=== PATIENT | male | born 1990 | race Caucasian/White ===

== ENCOUNTER 2021-06-26 16:49 | Emergency (ER) | payer OTHER ==
[~2021-06-26] VITALS: Ht 185.4 cm; Wt 97.7 kg
[~2021-06-26 16:49] MED LIST: NOCURR; OMEP20TA2 PO
[2021-06-26 17:03] VITALS: BP 138/92
[2021-06-26] MEDS ORDERED: HYDROCODONE/ACETAMINOPHEN 10-325 MG TABLET PO ONE (18:15)
== END 2021-06-26 18:49 | disposition home or self-care (01) ==
LOC: EMS 16:49
DX: S93.601A Unspecified sprain of right foot, initial encounter (principal); F17.210 Nicotine dependence, cigarettes, uncomplicated; W18.39XA Other fall on same level, initial encounter; Y93.89 Activity, other specified; Y92.89 Other specified places as the place of occurrence of the external cause; Y99.8 Other external cause status
CPT/HCPCS: 99283

== ENCOUNTER 2021-08-06 23:01 | Emergency (ER) | payer OTHER ==
[2021-08-07] MEDS ORDERED: MAG30ORA11 PO (15:03)
[2021-08-07] MEDS ORDERED: ACET-66 PO (15:03)
== END 2021-08-07 | disposition left against medical advice (07) ==
LOC: EMS 23:02
DX: Z53.21 Procedure and treatment not carried out due to patient leaving prior to being seen by health care provider (principal)

== ENCOUNTER 2021-08-07 11:55 | Emergency (ER) | payer OTHER ==
[~2021-08-07] VITALS: Ht 182.9 cm; Wt 95.5 kg
[2021-08-07] MEDS ORDERED: FAMOTIDINE 10 MG/ML 2 ML VIAL IVP ONE (12:30)
[2021-08-07] MEDS ORDERED: MAG HYDROX/AL HYDROX/SIMETH 30 ML SUSP UDCUP PO ONE (12:30)
[2021-08-07] MEDS ORDERED: SODIUM CHLORIDE 0.9% 1,000 ML IV ONE (12:30)
[2021-08-07] MEDS ORDERED: ACETAMINOPHEN 500 MG TABLET PO ONE (12:30)
[2021-08-07] MEDS ORDERED: KETOROLAC TROMETHAMINE 30 MG/ML VIAL IVP ONE (12:30)
[2021-08-07 12:46] LABS: BASOPHILS % (AUTO) 0.2 % (0.0-2.0); EOSINOPHILS % (AUTO) 0.1 % (1.0-6.0); HEMATOCRIT 44.4 % (41-53); HEMOGLOBIN 15.4 g/dL (13.5-17.5); LYMPHOCYTES # (AUTO) 0.9 K/uL (1.0-4.8); LYMPHOCYTES % (AUTO) 7.7 % (22.0-44.0); MEAN CORPUSCULAR HEMOGLOBIN 30.5 pg (26.0-34.0); MEAN CORPUSCULAR HGB CONC 34.7 G/dL (31.0-37.0); MEAN CORPUSCULAR VOLUME 88 fL (80-100); MONOCYTES # (AUTO) 0.8 K/uL (0.1-1.0); MONOCYTES % (AUTO) 6.1 % (2.0-9.0); NEUTROPHILS # (AUTO) 10.6 K/uL (1.8-7.7); PLATELET COUNT (AUTO) 201 K/uL (150-450); RED BLOOD CELL COUNT(AUTO) 5.06 MIL/uL (4.50-5.90); RED CELL DISTRIBUTION WIDTH 12.2 % (11.5-14.5)
[2021-08-07 12:50] LABS: ANION GAP 8 mmol/L (8-16); CALCIUM, TOTAL 8.7 mg/dL (8.8-10.5); CARBON DIOXIDE 26 mmol/L (22-29); CHLORIDE 101 mmol/L (98-107); CREATININE 0.92 mg/dL (0.60-1.30); GLOMERULAR FILTR. RATE CALC > 60 mL/min (>60); GLUCOSE,RANDOM 113 mg/dL (70-110); POTASSIUM 3.7 mmol/L (3.5-5.1); SODIUM SERUM 135 mmol/L (136-145); UREA NITROGEN, BLOOD 10 mg/dL (7-18)
[2021-08-07 12:55] LABS: COVID AG,FIA SOURCE NASOPHARYNGEAL
[2021-08-07 12:58] LABS: B-TYPE NATRIURETIC PEPTIDE 5 pg/mL (0-100)
[2021-08-07 13:03] LABS: NEUTROPHILS % (AUTO) 85.9 % (40.0-70.0)
[2021-08-07 13:22] LABS: ALANINE AMINOTRANSFERASE 28 U/L (12-78); ALBUMIN 3.5 g/dL (3.4-5.0); ALKALINE PHOSPHATASE 73 U/L (46-116); ASPARTATE AMINOTRANSFERASE 15 U/L (15-37); BILIRUBIN,TOTAL 0.9 mg/dL (0.1-1.0); CREATINE KINASE, TOTAL ONLY 95 U/L (39-308); TOTAL PROTEIN, SERUM 7.4 g/dL (6.4-8.2)
[2021-08-07] MEDS ORDERED: IOHEXOL 350 MG/ML 150 ML VIAL ONE (13:42)
[2021-08-07] MEDS ORDERED: SODIUM CHLORIDE 0.9% 100 ML ONE (13:42)
[2021-08-07 14:14] VITALS: BP 147/81
[2021-08-07 14:19] LABS: INFLUENZA TYPE A NEGATIVE FOR TYPE A (NEGATIVE); INFLUENZA TYPE B NEGATIVE FOR TYPE B (NEGATIVE)
[2021-08-07 14:48] LABS: PROTHROMBIN TIME 10.6 SEC (9.4-11.6)
[2021-08-07] MEDS ORDERED: ACET-66 PO (15:03)
[2021-08-07] MEDS ORDERED: MAG30ORA11 PO (15:03)
== END 2021-08-07 16:05 | disposition home or self-care (01) ==
LOC: EMS 11:55
DX: R07.9 Chest pain, unspecified (principal); F17.210 Nicotine dependence, cigarettes, uncomplicated; R11.2 Nausea with vomiting, unspecified; R19.7 Diarrhea, unspecified; Z20.822 Contact with and (suspected) exposure to COVID-19
CPT/HCPCS: 36415; 71045; 71275; 80053; 82550; 83880; 84484; 85025; 85379; 85610; 85730; 87426; 87804; 93005; 96361; 96374; 96375; 99285; J1885; J3490; J7050; Q9967

== ENCOUNTER 2021-09-25 20:49 | Inpatient (IN) | payer OTHER ==
[~2021-09-25] VITALS: Ht 185.4 cm; Wt 95.5 kg
[~2021-09-25 20:49] MED LIST changes: +ACET-66 PO; +MAG30ORA11 PO; -NOCURR; -OMEP20TA2 PO
[2021-09-25] MEDS ORDERED: HYDROCODONE/ACETAMINOPHEN 5-325 MG TABLET PO ONE (22:30)
[2021-09-25] MEDS ORDERED: THROMBIN, BOVINE 20000 UNITS/VIAL POWDER TP ONE (22:35)
[2021-09-25] MEDS ORDERED: GELATIN SPONGE,ABSORBABLE 100 MM TP ONE (22:35)
[2021-09-25] MEDS ORDERED: ONDANSETRON HCL 4 MG/2 ML VIAL IVP PRN (23:00)
[2021-09-25] MEDS ORDERED: ACETAMINOPHEN 325 MG TABLET PO PRN (23:00)
[2021-09-25] MEDS ORDERED: MORPHINE SULFATE 2 MG/ML SYRINGE IVP PRN (23:00)
[2021-09-25] MEDS ORDERED: PIPERACILLIN/TAZO 3.375 GM/D5W 50 ML IV ONE (23:00)
[2021-09-25] MEDS ORDERED: RINGERS LACTATED IV ONE (23:00)
[2021-09-25] MEDS ORDERED: VANCOMYCIN 1GM/WATER(PEG/NADA) 200 ML IV ONE (23:00)
[2021-09-25 23:49] LABS: BASOPHILS % (AUTO) 0.3 % (0.0-2.0); EOSINOPHILS % (AUTO) 0.9 % (1.0-6.0); HEMATOCRIT 40.5 % (41-53); HEMOGLOBIN 13.8 g/dL (13.5-17.5); LYMPHOCYTES # (AUTO) 1.6 K/uL (1.0-4.8); LYMPHOCYTES % (AUTO) 17.4 % (22.0-44.0); MEAN CORPUSCULAR HEMOGLOBIN 30.1 pg (26.0-34.0); MEAN CORPUSCULAR HGB CONC 34.1 G/dL (31.0-37.0); MEAN CORPUSCULAR VOLUME 88 fL (80-100); MONOCYTES % (AUTO) 10.4 % (2.0-9.0); NEUTROPHILS # (AUTO) 6.6 K/uL (1.8-7.7); PLATELET COUNT (AUTO) 257 K/uL (150-450); RED BLOOD CELL COUNT(AUTO) 4.59 MIL/uL (4.50-5.90); RED CELL DISTRIBUTION WIDTH 13.1 % (11.5-14.5)
[2021-09-25] MEDS: HEPARIN SODIUM,PORCINE 5,000 UNITS/ML VIAL SQ SCH (23:56)
[2021-09-26 00:01] LABS: ANION GAP 8 mmol/L (8-16); CALCIUM, TOTAL 8.9 mg/dL (8.8-10.5); CARBON DIOXIDE 29 mmol/L (22-29); CHLORIDE 101 mmol/L (98-107); GLUCOSE,RANDOM 96 mg/dL (70-110); POTASSIUM 3.9 mmol/L (3.5-5.1); SODIUM SERUM 138 mmol/L (136-145); UREA NITROGEN, BLOOD 14 mg/dL (7-18)
[2021-09-26 00:05] LABS: ALANINE AMINOTRANSFERASE 28 U/L (12-78); ALBUMIN 3.4 g/dL (3.4-5.0); ALKALINE PHOSPHATASE 72 U/L (46-116); ASPARTATE AMINOTRANSFERASE 10 U/L (15-37); BILIRUBIN,TOTAL 0.4 mg/dL (0.1-1.0); TOTAL PROTEIN, SERUM 7.4 g/dL (6.4-8.2)
[2021-09-26 00:06] LABS: GLOMERULAR FILTR. RATE CALC > 60 mL/min (>60)
[2021-09-26 00:32] LABS: COVID AG,FIA SOURCE NASAL SWAB
[2021-09-26 01:15] VITALS: BP 136/72
[2021-09-26] MEDS ORDERED: SODIUM CHLORIDE 0.9% 250 ML IV ONE (01:27)
[2021-09-26] MEDS: RINGERS SOLUTION,LACTATED 1,000 ML IV SCH ×3 (01:37→18:52)
[2021-09-26 06:00] VITALS: BP 130/84
[2021-09-26] MEDS: HEPARIN SODIUM,PORCINE 5,000 UNITS/ML VIAL SQ SCH ×4 (07:48→22:46)
[2021-09-26 08:03] VITALS: BP 128/82
[2021-09-26] MEDS: PIPERACILLIN/TAZO 3.375 GM/D5W 50 ML IV SCH ×2 (12:43→18:18)
[2021-09-26] MEDS: VANCOMYCIN 1GM/WATER(PEG/NADA) 200 ML IV SCH ×2 (15:24→22:08)
[2021-09-26 15:59] VITALS: BP 139/78
[2021-09-26 20:00] VITALS: BP 136/60
[2021-09-27] MEDS: PIPERACILLIN/TAZO 3.375 GM/D5W 50 ML IV SCH ×2 (00:42→05:37)
[2021-09-27] MEDS: RINGERS SOLUTION,LACTATED 1,000 ML IV SCH (05:00)
[2021-09-27 05:14] VITALS: BP 123/73
[2021-09-27 05:57] LABS: BASOPHILS % (AUTO) 0.6 % (0.0-2.0); EOSINOPHILS % (AUTO) 1.9 % (1.0-6.0); HEMATOCRIT 41.4 % (41-53); HEMOGLOBIN 14.1 g/dL (13.5-17.5); LYMPHOCYTES # (AUTO) 1.5 K/uL (1.0-4.8); LYMPHOCYTES % (AUTO) 22.6 % (22.0-44.0); MEAN CORPUSCULAR HEMOGLOBIN 30.2 pg (26.0-34.0); MEAN CORPUSCULAR HGB CONC 33.9 G/dL (31.0-37.0); MEAN CORPUSCULAR VOLUME 89 fL (80-100); MONOCYTES # (AUTO) 0.8 K/uL (0.1-1.0); MONOCYTES % (AUTO) 11.2 % (2.0-9.0); NEUTROPHILS # (AUTO) 4.4 K/uL (1.8-7.7); NEUTROPHILS % (AUTO) 63.7 % (40.0-70.0); PLATELET COUNT (AUTO) 262 K/uL (150-450); RED BLOOD CELL COUNT(AUTO) 4.66 MIL/uL (4.50-5.90); RED CELL DISTRIBUTION WIDTH 13.1 % (11.5-14.5)
[2021-09-27 06:13] LABS: ANION GAP 9 mmol/L (8-16); CALCIUM, TOTAL 9.2 mg/dL (8.8-10.5); CARBON DIOXIDE 28 mmol/L (22-29); CHLORIDE 101 mmol/L (98-107); CREATININE 0.89 mg/dL (0.60-1.30); GLUCOSE,RANDOM 112 mg/dL (70-110); SODIUM SERUM 138 mmol/L (136-145); UREA NITROGEN, BLOOD 11 mg/dL (7-18)
[2021-09-27 06:17] LABS: GLOMERULAR FILTR. RATE CALC > 60 mL/min (>60)
[2021-09-27] MEDS: VANCOMYCIN 1GM/WATER(PEG/NADA) 200 ML IV SCH (06:39)
[2021-09-27] MEDS: HEPARIN SODIUM,PORCINE 5,000 UNITS/ML VIAL SQ SCH (07:55)
[2021-09-27] MEDS ORDERED: SULF-261 PO (09:42)
== END 2021-09-27 11:30 | disposition home or self-care (01) | DRG 501 ==
LOC: EMS 20:56 → 6S 09-26 00:38
PROVIDERS: ADMIT Internal Medicine; ATTEND Internal Medicine
DX: N49.2 Inflammatory disorders of scrotum (principal); F17.210 Nicotine dependence, cigarettes, uncomplicated; Z20.822 Contact with and (suspected) exposure to COVID-19
CPT/HCPCS: 76870; 80048; 80053; 85025; 87040; 99285; J1644; J2270; J2543; J7050; J7120; Q9967